=== PATIENT | female | born 1985 | race Caucasian/White ===

== ENCOUNTER 2020-06-29 11:15 | Emergency (ER) | payer OTHER ==
[~2020-06-29] VITALS: Ht 162.6 cm; Wt 73.0 kg
[2020-06-29 11:29] VITALS: Ht 162.6 cm; Wt 73.0 kg
[2020-06-29 14:43] VITALS: BP 117/74
== END 2020-06-29 14:43 | disposition home or self-care (01) ==
LOC: ED 11:15
DX: S40.812A Abrasion of left upper arm, initial encounter (principal); F43.10 Post-traumatic stress disorder, unspecified; F32.9 Major depressive disorder, single episode, unspecified; X58.XXXA Exposure to other specified factors, initial encounter; Y93.89 Activity, other specified; Y92.89 Other specified places as the place of occurrence of the external cause; Y99.8 Other external cause status